=== PATIENT | male | born 1995 | race Hispanic/Latino ===

== ENCOUNTER 2021-08-20 08:54 | Emergency (ER) | payer OTHER ==
[2021-08-20] MEDS ORDERED: ASPIRIN 325 MG TAB PO ONE (10:05)
--- NOTE | 2021-08-20 10:15 | Emergency Department Report ---
ED Chest Pain HPI - General Chief Complaint: Chest Pain Stated Complaint: CHEST PAIN PUI?: No Time Seen by Provider: 08/20/21 09:49 Source: patient Mode of arrival: Ambulatory Limitations: No Limitations - History of Present Illness Initial Comments: 26-year-old male with a past medical history of GERD, presents to the ER today w ith complaints of chest pain. Patient states that for the past 2 days he has been having constant pain in his left chest, left arm and left neck. He states the majority of the time the pain starts in his left neck and radiates into his left shoulder and down his arm might also just started his chest sometimes. He states that the pain has been constant for the past 2 days. He describes as a sharp/dull throbbing pain. He reports associated "dizzy spells", intermittent numbness in his left arm and feels like he is not getting enough deep breaths. He is unable to describe any modifying factors. Patient states that he had similar symptoms about a year ago and saw a freezer unloader. He states that he was told that he was "fine" after getting a treadmill stress test, echo and wearing a Holter monitor. He denies any known family history of heart disease. He states that he was adopted. He states that he chews tobacco and he drinks about 2 beers a night. He denies any illicit drug use. MD Complaint: chest pain -: days(s) (2) - Related Data Previous Rx's Medication Instructions Recorded Last Taken Type Ketorolac [Toradol] 10 mg PO Q6H PRN #20 tab 08/20/21 Unknown Rx Allergies Allergy/AdvReac Type Severity Reaction Status Date / Time No Known Allergies Allergy Verified 08/20/21 09:04 Heart Score - HEART Score History: Slightly suspicious EKG: Normal Age: < 45 Risk factors: 1-2 risk factors (chewing tobacco) Troponin: < normal limit HEART Score: 1 - EKG Read Time Time EKG Completed: 09:12 EKG Read Time: 09:17 - Critical Actions Critical Actions: 0-3 pts:0.9-1.7%risk of adverse cardiac event.Candidate for discharge ED Review of Systems ROS: Stated complaint: CHEST PAIN Other details as noted in HPI Comment: All other systems reviewed and negative Constitutional: denies: chills, fever Eyes: denies: eye pain, eye discharge, vision change ENT: denies: ear pain, throat pain Respiratory: denies: cough, shortness of breath, SOB with exertion, SOB at rest, wheezing Cardiovascular: denies: chest pain, palpitations Endocrine: no symptoms reported Gastrointestinal: denies: abdominal pain, nausea, diarrhea Genitourinary: denies: urgency, dysuria Musculoskeletal: arthralgia (left shoulder pain ), myalgia, other (neck pain). denies: back pain, joint swelling Skin: denies: rash, lesions, change in color, change in hair/nails, pruritus Neurological: denies: headache, weakness, numbness, paresthesias, confusion, vertigo Psychiatric: denies: anxiety, depression, auditory hallucinations, visual hallucinations, homicidal thoughts, suicidal thoughts ED Past Medical Hx - Medications Home Medications: Home Medications Medication Instructions Recorded Confirmed Last Taken Type Ketorolac [Toradol] 10 mg PO Q6H PRN #20 tab 08/20/21 Unknown Rx ED Physical Exam - General Limitations: No Limitations General appearance: alert, in no apparent distress - Head Head exam: Present: atraumatic, normocephalic, normal inspection - Eye Eye exam: Present: normal appearance, PERRL, EOMI Pupils: Present: normal accommodation - Neck Neck exam: Present: normal inspection, full ROM. Absent: meningismus - Respiratory Respiratory exam: Present: normal lung sounds bilaterally. Absent: respiratory distress, wheezes, rales, rhonchi, stridor - Cardiovascular Cardiovascular Exam: Present: regular rate, normal rhythm, normal heart sounds - GI/Abdominal GI/Abdominal exam: Present: soft. Absent: distended, tenderness, guarding, rebound - Extremities Exam Extremities exam: Present: full ROM - Neurological Exam Neurological exam: Present: alert, oriented X3, CN II-XII intact, normal gait - Psychiatric Psychiatric exam: Present: normal affect, normal mood ED Course Vital Signs 08/20/21 08/20/21 09:05 11:31 Temperature 98.3 F Pulse Rate 64 68 Respiratory 16 16 Rate Blood Pressure 146/81 140/82 [Left] O2 Sat by Pulse 99 100 Oximetry ED Medical Decision Making - Lab Data Result diagrams: 08/20/21 10:32 08/20/21 10:32 - EKG Data EKG shows normal: sinus rhythm Rate: normal (57) - EKG Data Interpretation: normal EKG - Radiology Data Radiology results: report reviewed Patient: MILO BOWEN MR#: [id number] : 1995 Acct:[id number] Age/Sex: 26 / M ADM Date: 08/20/21 Loc: ED Attending Dr: Ordering Physician: MADI HELTON Date of Service: 08/20/21 Procedure(s): XR chest routine 2V Accession Number(s): [id number] cc: MADI HELTON Fluoro Time In Minutes: CHEST PA AND LATERAL VIEWS INDICATION: Chest Pain. COMPARISON: None. FINDINGS: Support devices: None. Heart: Within normal limits. Lungs/Pleura: No acute pulmonary or pleural findings. IMPRESSION: 1. No acute findings. Signer Name: Luis Lynn MD Signed: 08/20/2021 10:45 AM Workstation Name: [id number] Transcribed By: KWABENA Dictated By: Luis Lynn MD Electronically Authenticated By: Luis Lynn MD Signed Date/Time: 08/20/21 104 DD/ 104 TD/TT: - Medical Decision Making 26-year-old male with a past medical history of GERD, presents to the ER today with complaints of chest pain. Patient states that for the past 2 days he has been having constant pain in his left chest, left arm and left neck. He states the majority of the time the pain starts in his left neck and radiates into his left shoulder and down his arm might also just started his chest sometimes. He states that the pain has been constant for the past 2 days. He describes as a sharp/dull throbbing pain. He reports associated "dizzy spells", intermittent numbness in his left arm and feels like he is not getting enough deep breaths. He is unable to describe any modifying factors. Patient states that he had similar symptoms about a year ago and saw a freezer unloader. He states that he was told that he was "fine" after getting a treadmill stress test, echo and wearing a Holter monitor. He denies any known family history of heart disease. He states that he was adopted. He states that he chews tobacco and he drinks about 2 beers a night. He denies any illicit drug use. 1132: Patient work-up today shows no acute abnormalities including normal troponin, and EKG which did not show any acute acute ischemic changes/STEMI or significant dysrhythmias and a normal chest x-ray. Patient is currently well- appearing, nontoxic and not in any acute distress. He is neurologically intact and his gait is normal. His vital signs are stable. Patient has a heart score of 1. He has a PERC score of 0. At this time I do not suspect unstable angina, PE, aortic dissection, stroke/TIA or any other acute abnormalities warranting additional testing or admission at this time. Discussed results with patient. Informed him that this pain could be coming from pinched nerve in his neck given that most of the time it starts in his neck and radiates down into his arm. I recommend that he follows up with his primary care doctor or orthospine specialist for an outpatient MRI also recommend follow back up with his freezer unloader. Patient expressed understanding. Patient was stable at time of discharge. Critical care attestation.: If time is entered above; I have spent that time in minutes in the direct care of this critically ill patient, excluding procedure time. ED Disposition Clinical Impression: Nonspecific chest pain, Cervical radiculopathy Disposition: HOME / SELF CARE / HOMELESS Is pt being admited?: No Does the pt Need Aspirin: No Condition: Stable Instructions: Cervical Radiculopathy, Nonspecific Chest Pain, Adult, [id number] Additional Instructions: I recommend that you take the Toradol to help with your pain. Your symptoms could be related to a pinched nerve in your neck and I do recommend follow-up with the orthospine specialist or your primary care doctor for outpatient MRI of your neck and further evaluation. I do recommend also following up with your freezer unloader. Return to the ER if your symptoms changes or worsens in any way. Prescriptions: Ketorolac [Toradol] 10 mg PO Q6H PRN #20 tab PRN Reason: Pain Referrals: ADIA ELIZABETH MD [Staff Physician] - 3-5 Days Forms: Work/School Release Form(ED) Time of Disposition: 11:23
[2021-08-20 10:47] LABS: Basophils % (Auto) 0.4 % (0.0-1.8); Eosinophils # (Auto) 0.1 K/mm3 (0.0-0.4); Eosinophils % (Auto) 1.7 % (0.0-4.3); Hemoglobin 14.1 gm/dl (11.8-15.2); Lymphocytes # (Auto) 1.4 K/mm3 (1.2-5.4); Lymphocytes % (Auto) 30.2 % (13.4-35.0); Mean Corpuscular HGB Conc 34 % (32-34); Mean Corpuscular Volume 86 fl (84-94); Monocytes # (Auto) 0.4 K/mm3 (0.0-0.8); Monocytes % (Auto) 7.5 % (0.0-7.3); Platelet Count 214 K/mm3 (140-440); Red Cell Distribution Width 13.2 % (13.2-15.2)
--- NOTE | 2021-08-20 10:49 | XRay Report ---
CHEST PA AND LATERAL VIEWS INDICATION: Chest Pain. COMPARISON: None. FINDINGS: Support devices: None. Heart: Within normal limits. Lungs/Pleura: No acute pulmonary or pleural findings. IMPRESSION: 1. No acute findings. Signer Name: Luis Lynn MD Signed: 08/20/2021 10:45 AM Workstation Name: [id number]
[2021-08-20 11:14] LABS: Alanine Aminotransferase 34 units/L (7-56); Albumin 4.9 g/dL (3.9-5); BUN/Creatinine Ratio 24; Blood Urea Nitrogen 19 mg/dL (9-20); Calcium 9.8 mg/dL (8.4-10.2); Hemolysis Index 2
[2021-08-20 11:32] VITALS: BP 140/82
--- NOTE | 2021-08-21 11:24 | Electrocardiograph Report ---
[facility] Test Date: 2021-08-20 Test Time: 09:12:35 Pat Name: MILO BOWEN Department: Room: Gender: M Campus Safety Officer: SUSAN : 1995 Requested By: FANY AVILEZ Order Number: [id number] Reading MD: Koko Crawford Measurements Intervals [place] Rate: 57 P: 24 CA: 143 QRS: 15 QRSD: 109 T: 32 QT: 417 QTc: 407 Interpretive Statements Sinus rhythm ST elev, probable normal early repol pattern No previous ECG available for comparison Electronically Signed On 08-21-2021 11:24:13 EDT by Koko Crawford
== END 2021-08-20 11:32 | disposition home or self-care (01) ==
LOC: ED 08:54
DX: R07.9 Chest pain, unspecified (principal); M54.12 Radiculopathy, cervical region
CPT/HCPCS: 36415; 71046; 80053; 83690; 84484; 85025; 93005; 99284

== ENCOUNTER 2021-12-25 10:57 | Emergency (ER) | payer OTHER ==
[2021-12-25 11:48] LABS: Basophils # (Auto) 0.1 K/mm3 (0.0-0.1); Basophils % (Auto) 1.2 % (0.0-1.8); Eosinophils # (Auto) 0.1 K/mm3 (0.0-0.4); Eosinophils % (Auto) 0.9 % (0.0-4.3); Hematocrit 38.9 % (35.5-45.6); Hemoglobin 13.4 gm/dl (11.8-15.2); Lymphocytes # (Auto) 2.2 K/mm3 (1.2-5.4); Lymphocytes % (Auto) 29.1 % (13.4-35.0); Mean Corpuscular HGB Conc 35 % (32-34); Mean Corpuscular Volume 85 fl (84-94); Monocytes # (Auto) 0.5 K/mm3 (0.0-0.8); Red Cell Distribution Width 13.6 % (13.2-15.2)
[2021-12-25 11:50] LABS: Platelet Count 172 K/mm3 (140-440)
[2021-12-25 12:06] LABS: Color,Urine Colorless (Yellow); WBC,Urine < 1.0 /HPF (0.0-6.0)
[2021-12-25 12:09] LABS: Bilirubin,Urine Negative (Negative); Blood,Urine Negative (Negative); Protein,Urine <15 mg/dL mg/dL (Negative); Urobilinogen,Urine < 2.0 mg/dL (<2.0)
[2021-12-25 12:34] LABS: Alanine Aminotransferase 54 units/L (7-56); Albumin 4.8 g/dL (3.9-5); BUN/Creatinine Ratio 15; Blood Urea Nitrogen 12 mg/dL (9-20); Calcium 9.4 mg/dL (8.4-10.2); Hemolysis Index 10
--- NOTE | 2021-12-26 04:44 | XRay Report ---
CHEST 2 VIEWS INDICATION / CLINICAL INFORMATION: cp and dizziness. COMPARISON: Chest x-ray 08/20/2021 FINDINGS: SUPPORT DEVICES: None. HEART / MEDIASTINUM: Heart size and mediastinal contour appear within normal limits. LUNGS / PLEURA: No significant pulmonary or pleural abnormality. No pneumothorax. BONES: No significant osseous abnormality. ADDITIONAL FINDINGS: No significant additional findings. IMPRESSION: 1. No active cardiopulmonary disease. Signer Name: Edin Palm II, MD Signed: 12/26/2021 4:40 AM Workstation Name: [id number]
--- NOTE | 2021-12-26 05:16 | Cat Scan Report ---
CT HEAD WITHOUT CONTRAST INDICATION / CLINICAL INFORMATION: headache, dizziness. TECHNIQUE: CT head was performed without administration of intravenous contrast. All CT scans at this location are performed using CT dose reduction for ALARA by means of automated exposure control. COMPARISON: None available. FINDINGS: CEREBRAL HEMISPHERES: There is no evidence of large territorial infarction or significant abnormality of adame-white matter differentiation. Ventricles within normal limits. No midline shift. Basal ciste rns patent. HEMORRHAGE: None. CEREBELLUM / BRAINSTEM: No significant abnormality. ORBITS: No significant abnormality. SOFT TISSUES: No significant abnormality. SKULL: No significant abnormality. PARANASAL SINUSES / MASTOID AIR CELLS: Small mucous retention cysts are present within the left maxil crystal sinus. Multiple anterior ethmoid air cells demonstrate partial complete opacification. ADDITIONAL FINDINGS: None. IMPRESSION: 1. No acute intracranial abnormality. Signer Name: Edin Palm II, MD Signed: 12/26/2021 5:11 AM Workstation Name: [id number]
--- NOTE | 2021-12-26 05:50 | Emergency Department Report ---
ED Neuro Deficit HPI - General Chief Complaint: Alcohol Stated Complaint: DIZZINESS/SWELLING Time Seen by Provider: 12/26/21 04:14 Source: patient Mode of arrival: Ambulatory Limitations: No Limitations - History of Present Illness Initial Comments: 26-year-old male with no reported past medical history presents emergency department complaining of having episodes of lightheadedness dizziness and presyncope of unknown etiology. Symptoms are associated with headache which she gets off but denies any ringing in the ears,, visual disturbances, hearing loss, neck pain fever, chills, sweats. Initially when he arrived to the emergency department there was some suggestion of alcohol abuse but he is now denying any issues with EtOH. -: Gradual Place: home Severity: mild Quality: weak Improves With: none Worsens With: none On Anticoagulants: No - Related Data Home Medications: Previous Rx's Medication Instructions Recorded Last Taken Type Ketorolac [Toradol] 10 mg PO Q6H PRN #20 tab 08/20/21 Unknown Rx Meclizine HCl [Antivert] 25 mg PO Q8HR PRN #10 12/26/21 Unknown Rx Allergies/Adverse Reactions: Allergies Allergy/AdvReac Type Severity Reaction Status Date / Time No Known Allergies Allergy Verified 08/20/21 09:04 ED Review of Systems ROS: Stated complaint: DIZZINESS/SWELLING Other details as noted in HPI Comment: All other systems reviewed and negative ED Past Medical Hx - Past Medical History Previous Medical History?: Yes - Social History Smoking Status: Heavy Tobacco Smoker - Medications Home Medications: Home Medications Medication Instructions Recorded Confirmed Last Taken Type Ketorolac [Toradol] 10 mg PO Q6H PRN #20 tab 08/20/21 Unknown Rx Meclizine HCl [Antivert] 25 mg PO Q8HR PRN #10 12/26/21 Unknown Rx ED Neuro Physical Exam - General Limitations: No Limitations General appearance: alert, in no apparent distress Suspected Stroke: No - Head Head exam: Present: atraumatic, normocephalic - Eye Eye exam: Present: normal appearance, PERRL, EOMI - ENT ENT exam: Present: mucous membranes moist - Neck Neck exam: Present: normal inspection, full ROM, other (No JVD no bruits appreciated. No lymphadenopathy) - Respiratory Respiratory exam: Present: normal lung sounds bilaterally, chest wall tenderness. Absent: respiratory distress, rales, rhonchi, stridor, decreased breath sounds - Cardiovascular Cardiovascular Exam: Present: regular rate, normal rhythm, normal heart sounds. Absent: bradycardia, tachycardia, irregular rhythm, systolic murmur, diastolic murmur, rubs, gallop - GI/Abdominal GI/Abdominal exam: Present: soft, normal bowel sounds - Rectal Rectal exam: Present: deferred - Extremities Exam Extremities exam: Present: normal inspection - Back Exam Back exam: Present: normal inspection - Neurological Exam Neurological exam: Present: alert, oriented X3 - Psychiatric Psychiatric exam: Present: normal affect, normal mood - Skin Skin exam: Present: warm, dry, intact, normal color. Absent: rash ED Course Vital Signs 12/25/21 11:09 Temperature 98.3 F Pulse Rate 86 Respiratory 18 Rate Blood Pressure 130/75 O2 Sat by Pulse 99 Oximetry - Lab Data Result diagrams: 12/25/21 11:22 12/25/21 11:22 Lab Results 12/25/21 12/25/21 12/25/21 Range/Units 11:22 11:22 11:22 WBC 7.4 (4.5-11.0) K/mm3 RBC 4.60 (3.65-5.03) M/mm3 Hgb 13.4 (11.8-15.2) gm/dl Hct 38.9 (35.5-45.6) % MCV 85 (84-94) fl MCH 29 (28-32) pg MCHC 35 H (32-34) % RDW 13.6 (13.2-15.2) % Plt Count 172 (140-440) K/mm3 Lymph % (Auto) 29.1 (13.4-35.0) % [place] % (Auto) 7.0 (0.0-7.3) % Eos % (Auto) 0.9 (0.0-4.3) % Baso % (Auto) 1.2 (0.0-1.8) % Lymph # (Auto) 2.2 (1.2-5.4) K/mm3 [place] # (Auto) 0.5 (0.0-0.8) K/mm3 Eos # (Auto) 0.1 (0.0-0.4) K/mm3 Baso # (Auto) 0.1 (0.0-0.1) K/mm3 Seg Neutrophils % 61.8 (40.0-70.0) % Seg Neutrophils # 4.6 (1.8-7.7) K/mm3 Sodium 130 L (137-145) mmol/L Potassium 3.9 (3.6-5.0) mmol/L Chloride 95.6 L (98-107) mmol/L Carbon Dioxide 24 (22-30) mmol/L Anion Gap 14 mmol/L BUN 12 (9-20) mg/dL Creatinine 0.8 (0.8-1.3) mg/dL Estimated GFR > 60 ml/min BUN/Creatinine Ratio 15 % Glucose 98 (75-100) mg/dL Calcium 9.4 (8.4-10.2) mg/dL Total Bilirubin 0.30 (0.1-1.2) mg/dL AST 37 (5-40) units/L ALT 54 (7-56) units/L Alkaline Phosphatase 81 (35-129) units/L Total Protein 7.2 (6.3-8.2) g/dL Albumin 4.8 (3.9-5) g/dL Albumin/Globulin Ratio 2.0 % Urine Color (Yellow) Urine Turbidity (Clear) Urine pH (5.0-7.0) Ur Specific [place] (1.003-1.030) Urine Protein (Negative) mg/dL Urine Glucose (UA) (Negative) mg/dL Urine Ketones (Negative) mg/dL Urine Blood (Negative) Urine Nitrite (Negative) Ur Reducing Substances Urine Bilirubin (Negative) Urine Ictotest Urine Urobilinogen (<2.0) mg/dL Ur Leukocyte Esterase (Negative) Urine WBC (Auto) (0.0-6.0) /HPF Urine RBC (Auto) (0.0-6.0) /HPF Plasma/Serum Alcohol < 0.01 (0-0.07) % 12/25/21 Range/Units Unknown WBC (4.5-11.0) K/mm3 RBC (3.65-5.03) M/mm3 Hgb (11.8-15.2) gm/dl Hct (35.5-45.6) % MCV (84-94) fl MCH (28-32) pg MCHC (32-34) % RDW (13.2-15.2) % Plt Count (140-440) K/mm3 Lymph % (Auto) (13.4-35.0) % [place] % (Auto) (0.0-7.3) % Eos % (Auto) (0.0-4.3) % Baso % (Auto) (0.0-1.8) % Lymph # (Auto) (1.2-5.4) K/mm3 [place] # (Auto) (0.0-0.8) K/mm3 Eos # (Auto) (0.0-0.4) K/mm3 Baso # (Auto) (0.0-0.1) K/mm3 Seg Neutrophils % (40.0-70.0) % Seg Neutrophils # (1.8-7.7) K/mm3 Sodium (137-145) mmol/L Potassium (3.6-5.0) mmol/L Chloride (98-107) mmol/L Carbon Dioxide (22-30) mmol/L Anion Gap mmol/L BUN (9-20) mg/dL Creatinine (0.8-1.3) mg/dL Estimated GFR ml/min BUN/Creatinine Ratio % Glucose (75-100) mg/dL Calcium (8.4-10.2) mg/dL Total Bilirubin (0.1-1.2) mg/dL AST (5-40) units/L ALT (7-56) units/L Alkaline Phosphatase (35-129) units/L Total Protein (6.3-8.2) g/dL Albumin (3.9-5) g/dL Albumin/Globulin Ratio % Urine Color Colorless (Yellow) Urine Turbidity Clear (Clear) Urine pH 5.0 (5.0-7.0) Ur Specific [place] 1.005 (1.003-1.030) Urine Protein <15 mg/dl (Negative) mg/dL Urine Glucose (UA) Negative (Negative) mg/dL Urine Ketones Negative (Negative) mg/dL Urine Blood Negative (Negative) Urine Nitrite Negative (Negative) Ur Reducing Substances Not Reportable Urine Bilirubin Negative (Negative) Urine Ictotest Not Reportable Urine Urobilinogen < 2.0 (<2.0) mg/dL Ur Leukocyte Esterase Negative (Negative) Urine WBC (Auto) < 1.0 (0.0-6.0) /HPF Urine RBC (Auto) 2.0 (0.0-6.0) /HPF Plasma/Serum Alcohol (0-0.07) % - Radiology Data Radiology results: report reviewed [address] [address] Cat Scan Report Signed Patient: MILO BOWEN MR#: [id number] : 1995 Acct:[id number] Age/Sex: 26 / M ADM Date: 12/25/21 Loc: ED Attending Dr: Ordering Physician: TELLO SAMSON Date of Service: 12/26/21 Procedure(s): CT head/brain wo con Accession Number(s): [id number] cc: TELLO SAMSON CT HEAD WITHOUT CONTRAST INDICATION / CLINICAL INFORMATION: headache, dizziness. TECHNIQUE: CT head was performed without administration of intravenous contrast. All CT scans at this location are performed using CT dose reduction for ALARA by means of automated exposure control . COMPARISON: None available. FINDINGS: CEREBRAL HEMISPHERES: There is no evidence of large territorial infarction or significant abnormality of adame-white matter differentiation. Ventricles within normal limits. No midline shift. Basal cisterns patent. HEMORRHAGE: None. CEREBELLUM / BRAINSTEM: No significant abnormality. ORBITS: No significant abnormality. SOFT TISSUES: No significant abnormality. SKULL: No significant abnormality. PARANASAL SINUSES / MASTOID AIR CELLS: Small mucous retention cysts are present within the left maxillary sinus. Multiple anterior ethmoid air cells demonstrate partial complete opacification. ADDITIONAL FINDINGS: None. IMPRESSION: 1. No acute intracranial abnormality. Signer Name: Jailyn Sheikh II, MD Signed: 12/26/2021 5:11 AM Workstation Name: [id number] Transcribed By: TEE Dictated By: JAILYN SHEIKH II, MD Electronically Authenticated By: JAILYN SHEIKH II, MD Signed Date/Time: 12/26/21510 DD/ 0 TD/TT: [address] [address] XRay Report Signed Patient: MILO BOWEN MR#: [id number] : 1995 Acct:[id number] Age/Sex: 26 / M ADM Date: 12/25/21 Loc: ED Attending Dr: Ordering Physician: TELLO SAMSON Date of Service: 12/26/21 Procedure(s): XR chest routine 2V Accession Number(s): [id number] cc: TELLO SAMSON Fluoro Time In Minutes: CHEST 2 VIEWS INDICATION / CLINICAL INFORMATION: cp and dizziness. COMPARISON: Chest x-ray 08/20/2021 FINDINGS: SUPPORT DEVICES: None. HEART / MEDIASTINUM: Heart size and mediastinal contour appear within normal limits. LUNGS / PLEURA: No significant pulmonary or pleural abnormality. No pneumothorax. BONES: No significant osseous abnormality. ADDITIONAL FINDINGS: No significant additional findings. IMPRESSION: 1. No active cardiopulmonary disease. Signer Name: Jailyn Sheikh II, MD Signed: 12/26/2021 4:40 AM Workstation Name: [id number] Transcribed By: TEE Dictated By: JAILYN SHEIKH II, MD Electronically Authenticated By: JAILYN SHEIKH II, MD Signed Date/Time: 12/26/21439 DD/ 8 TD/TT: - Medical Decision Making This patient presents with a headache most consistent with nonemergent. Differential diagnosis includes migraine versus tension type headache. No h eadache red flags. Neurologic exam without evidence of meningismus, focal neurologic findings.Based on the patient's history and physical there is very low clinical suspicion for significant intracranial pathology. The headache was NOT sudden onset, NOT maximal at onset, there are NO neurologic findings, the patient does NOT have a fever, the patient does NOT have any jaw claudication, the patient does NOT endorse a clotting disorder, patient DENIES any trauma or eye pain and the headache is NOT associated with dizziness or ataxia. Presentation not consistent with acute intracranial bleed to include SAH (lack of risk factors, headache history). Presentation not consistent with acute PORTRAIT PHOTOGRAPHER infection to include meningitis or brain abscess, Temporal arteritis unlikely, as is acute angle closure glaucoma given history and physical findings. Presentation not consistent with other acute, emergent causes of headache at this time. Plan to treat symptomatically with pain medication. No indication for imaging/LP at this time. CT negative Plan: pain medication, serial reassessment Critical care attestation.: If time is entered above; I have spent that time in minutes in the direct care of this critically ill patient, excluding procedure time. ED Disposition Clinical Impression: Cephalgia, Pre-syncope Disposition: HOME / SELF CARE / HOMELESS Is pt being admited?: No Does the pt Need Aspirin: No Condition: Stable Instructions: Near-Syncope, [id number], Near-Syncope, General Headache Without Cause Additional Instructions: Problem 1 dizziness you have been evaluated emergency department today for dizziness. Evaluation suggested your symptoms are most likely due to peripheral vertigo. You have been prescribed meclizine to help alleviate symptoms please take your meds prescription as directed you can also try Puneet maneuver which is also related symptoms instructions are available. Please follow-up with your primary care doctor in 2 to 3 days 6 with return to the ER immediately for worsening or uncontrolled symptoms of worsening, worsening headaches, chest pain, shortness of breath, persistent vomiting, vision changes, fainting or for any any other concerning symptoms Problem 2 headache you have been evaluated in the emergency department today for headache. Your evaluation did not show evidence of medical conditions requiring emergent intervention at this time, and your pain improved with medication. We recommend that you take Motrin and Tylenol as needed for your pain. If needed you can alternate these medications so that you take 1 every 3 hours. To be sure to follow-up with your primary care provider within 2 days for Return to emergency department if you experience worsening uncontrolled pain, vision changes, recurrent vomiting, difficulty with normal activities, abnormal behavior, difficulty walking, numbness, weakness, or any other concerning symptoms. Prescriptions: Meclizine HCl [Antivert] 25 mg PO Q8HR PRN #10 PRN Reason: dizziness Referrals: [facility] [Provider Group] - 3-5 Days MARQUEZ ALEXANDER MD [Staff Physician] - 3-5 Days Forms: Work/School Release Form(ED)
[2021-12-26 08:49] VITALS: BP 128/59
--- NOTE | 2021-12-26 11:16 | Electrocardiograph Report ---
[facility] Test Date: 2021-12-25 Test Time: 11:18:30 Pat Name: MILO BOWEN Department: Room: Gender: M Demand Planner: SELENA : 1995 Requested By: ED DOC Order Number: [id number] Reading MD: Koko Crawford Measurements Intervals [place] Rate: 80 P: 55 SD: 151 QRS: 28 QRSD: 114 T: 30 QT: 335 QTc: 387 Interpretive Statements Sinus rhythm Incomplete right bundle branch block ST elev, probable normal early repol pattern Compared to ECG 08/20/2021 09:12:35 Incomplete right bundle-branch block now present ST (T wave) deviation still present Electronically Signed On 12-26-2021 11:16:01 EDT by Koko Crawford
== END 2021-12-26 08:49 | disposition home or self-care (01) ==
LOC: ED 10:57
DX: R51.9 Headache, unspecified (principal); R55 Syncope and collapse; F17.200 Nicotine dependence, unspecified, uncomplicated
CPT/HCPCS: 36415; 70450; 71046; 80053; 80320; 81001; 85025; 93005; 99284; G0480